=== PATIENT | male | born 1945 | race Caucasian/White ===

== ENCOUNTER 2019-03-04 09:00 | Day surgery (SDC) | payer MEDICARE, SELFPAY | END 2019-03-04 11:50 | disposition home or self-care (01) | PROVIDERS: PCP Internal Medicine; Visit Provider Surgery | DX: Z12.11 Encounter for screening for malignant neoplasm of colon (principal); Z86.010 Personal history of colon polyps; D12.2 Benign neoplasm of ascending colon | CPT/HCPCS: 45380; 45381; 812; 88305; J0690; J2704; J7120 ==

== ENCOUNTER 2019-03-26 08:14 | Outpatient (CLI) | payer MEDICARE, SELFPAY ==
--- NOTE | 2019-03-26 09:16 | ECG_ITS ---
Measurements Intervals Reeves Rate: 67 P: 5 HI: 165 QRS: -14 QRSD: 113 T: 67 QT: 373 QTc: 396 Interpretive Statements SINUS RHYTHM INTRAVENTRICULAR CONDUCTION DELAY DELAYED PRECORDIAL R/S TRANSITION INFERIOR INFARCT, AGE INDETERMINATE BASELINE ARTIFACT- I, II, III, AVR, AVL, AVF ABNORMAL ECG Electronically Signed On 03-26-2019 9:26:49 ERGONOMIST by Harry Tang D.O.
== END 2019-03-26 08:15 | disposition home or self-care (01) ==
LOC: ANHSURGERY 08:19
PROVIDERS: PCP Internal Medicine; Visit Provider Surgery
DX: I10 Essential (primary) hypertension (principal); I45.9 Conduction disorder, unspecified; R94.31 Abnormal electrocardiogram [ECG] [EKG]
CPT/HCPCS: 93005

== ENCOUNTER 2019-03-29 11:41 | Outpatient (CLI) | payer MEDICARE, SELFPAY ==
--- NOTE | ~2019-03-29 | XR_ITS ---
EXAMINATION: XR chest 2V EXAM DATE: 03/29/2019 12:01 INDICATION: Hypertension. TECHNIQUE: Frontal and lateral projections of the chest obtained and reviewed. There is no prior nany dy for comparison. FINDINGS: There is a right-sided portacatheter. There is linear right basilar scarring/atelectasis. The lungs are otherwise clear. There are no pleural effusions. The cardiomediastinal silhouette is within normal limits. There is no pneumothorax suspected. Patient has diffuse idiopathic skeletal h yperostosis (DISH). IMPRESSION: No acute cardiopulmonary findings. Reviewed, dictated and finalized at location B. MERCHANT
== END 2019-03-29 11:42 | disposition home or self-care (01) ==
LOC: CHSIMG 11:44
PROVIDERS: PCP Internal Medicine; Visit Provider Internal Medicine
DX: I10 Essential (primary) hypertension (principal); R94.31 Abnormal electrocardiogram [ECG] [EKG]
CPT/HCPCS: 71046

== ENCOUNTER 2019-04-01 14:16 | Outpatient (CLI) | payer MEDICARE, SELFPAY ==
--- NOTE | 2019-04-01 14:32 | ECHO_ITS ---
Patient Info Name: Mookie Phelps Age: 74 years : 1945 Gender: Male Ht: 70 in Wt: 256 lbs BSA: 2.44 m2 HR: 78 bpm BP: 159 / 92 mmHg Technical Quality: Good Exam Date: 04/01/2019 2:47 PM Exam Location: [facility] Pulmonary Patient Status: Outpatient Admit Date: 04/01/2019 Staff Ordering Physician: Harry Tang DO Spool Hauler: Perla Powell RDCS Attending Provider: Harry Tang DO Referring Physician: Clyde GUZMAN; Exam Type: CA echo doppler color flow Study Info Indications R06.09 - Other forms of dyspnea Complete two-dimensional, color flow and Doppler transthoracic echocardiogram is performed. Summary 1. Left ventricular chamber dimension is normal. 2. Left ventricular systolic function is normal, estimated at 55-60%. 3. There is moderately increased left ventricular wall thickness. 4. Left ventricular septal wall motion is abnormal with septal motion related to bundle branch block. 5. The left ventricular diastolic function is grade I diastolic dysfunction. 6. E/e' 10 is mildly elevated. 7. Left atrial chamber dimension is mildly enlarged. 8. There is moderate aortic valve sclerosis. 9. There is trace aortic valve regurgitation. 10. There is mild mitral valve regurgitation. 11. No pulmonary hypertension, estimated pulmonary arterial systolic pressure is 32 mmHg. 12. There is trace pulmonic regurgitation. Left Ventricle E/e' 10 is mildly elevated. Left ventricular chamber dimension is normal. Left ventricular systolic function is normal, estimated at 55-60%. There is moderately increased left ventricular wall thickness. Left ventricular septal wall motion is abnormal with septal motion related to bundle branch block. The left ventricular diastolic function is grade I diastolic dysfunction. Right Ventricle Right ventricular chamber dimension is normal. Right ventricular systolic function is normal. Left Atria Left atrial chamber dimension is mildly enlarged. Right Atria Right atrial chamber dimension is normal. Aortic Valve The aortic valve is trileaflet. There is moderate aortic valve sclerosis. There is no aortic valve stenosis. There is trace aortic valve regurgitation. Pulmonic Valve There is trace pulmonic regurgitation. Mitral Valve There is no mitral valve stenosis. There is mild mitral valve regurgitation. Tricuspid Valve There is no tricuspid valve regurgitation. No pulmonary hypertension, estimated pulmonary arterial systolic pressure is 32 mmHg. Pericardium/Pleural There is no pericardial effusion. Inferior Vena Cava Normal inferior vena cava with >50% collapse upon inspiration consistent with normal right atrial pressure, 5 mmHg. Aorta The aortic root size at the sinus of Valsalva is normal. Left Ventricular Outflow Tract Name Value Normal LVOT 2D LVOT Diameter 2.2 cm LVOT Doppler LVOT Peak Gradient 4 mmHg LVOT Mean Gradient 2 mmHg LVOT VTI 23 cm LVOT VTI/AV VTI Ratio 0.9 LVOT Stroke Volume
== END 2019-04-01 14:17 | disposition home or self-care (01) ==
LOC: ANHCARD 14:17
PROVIDERS: PCP Internal Medicine; Visit Provider Internal Medicine Cardiovascular Disease
DX: R06.09 Other forms of dyspnea (principal)
CPT/HCPCS: 93306

== ENCOUNTER 2019-04-06 15:07 | Inpatient (IN) | payer MEDICARE, SELFPAY ==
[2019-03-26 08:38] VITALS: BMI 37.1
[2019-03-26 09:20] VITALS: BP 145/81; PULSE 69; RESP 18; TEMP 36.8; O2SAT 96
[2019-04-06] VITALS (11 sets, daily range): BP systolic 114–160; BP diastolic 71–90; PULSE 70–85; RESP 12–19; TEMP 36.3–37.4; O2SAT 92–96
--- NOTE | 2019-04-06 10:29 | WPDANESEPPF ---
Anes - Initial Pre Proc Eval Procedure: Operation Date: 04/06/19 11:00 Proposed Procedures p Hand Assisted Laparoscopic Right Hemicolectomy, Possible Open - Joaquín Johns DO Date/Time: 04/06/19 10:29 Surgeon: Joaquín Johns DO Pre Op Diagnosis: Tubular Adenoma Patient Data Age: 74 Gender: M Height: 5 ft 10 in Weight: 117.5 kg Last Vital Signs Temp 36.8 C 03/26/19 09:20 Pulse 69 03/26/19 09:20 Resp 18 03/26/19 09:20 BP 145/81 H 03/26/19 09:20 Pulse Ox 96 03/26/19 09:20 Allergies Allergy/AdvReac Type Severity Reaction Status Date / Time No Known Allergies Allergy Unverified 03/26/19 08:27 Home Medications Medication Instructions Recorded Confirmed Type alpha lipoic acid 100 mg PO DAILY 03/26/19 03/26/19 History amlodipine 5 mg PO DAILY 03/26/19 03/26/19 History atorvastatin 20 mg PO DAILY 03/26/19 03/26/19 History cyanocobalamin (vitamin B-12) 1,000 mcg PO DAILY 03/26/19 03/26/19 History losartan 100 mg PO DAILY 03/26/19 03/26/19 History pyridoxine (vitamin B6) [Vitamin 100 mg PO DAILY 03/26/19 03/26/19 History B-6] vit C-E-zinc nz-orgg-mik-zeax 1 cap PO DAILY 03/26/19 03/26/19 History [ICaps AREDS2] trazodone 50 mg tablet 50 mg PO QPM #90 tablet 03/28/19 Rx Patient hx anesthesia problems: none Family hx anesthesia problems: none PMFSH Past Medical History Medical History Arthritis Bleeding tendency Surgical History Surgical History H/O colonoscopy History of appendectomy History of hip replacement Hx of cataract surgery Family History Family History Other Family history of coronary artery disease Hypertension Social History Social History Smoking status: Never smoker Alcohol intake: current Anes - Eval Final PreProcedure Day of Procedure 04/06/19 10:29 Patient weight: obese Heart: regular rate and rhythm Lungs: clear to auscultation Airway: Mallampati scale class II Neurological: alert and oriented Last oral intake: >/= 8 hours ASA classification: III Emergent: no Anesthetic plan: proceed Anesthesia type and monitoring: general ETT and standard monitoring Informed Consent: The patient's anesthetic plan and its attendant risks and benefits were discussed with the patient/family/POA. Questions were solicited and answers provided to the satisfaction of the patient/family/POA.
[2019-04-06] MEDS: LACTATED RINGERS 1,000 ML 30 ML IV CONT ×2 (10:30→13:46)
--- NOTE | 2019-04-06 10:37 | WPDHPUPDATE1 ---
History and Physical Update Update Date/Time: 04/06/19 10:37 History and Physical has been reviewed, including an updated exam of the patient. There are NO changes in the patient's condition. Risks, benefits, and alternatives have been discussed and questions answered. Patient agrees to proceed with procedure.
[2019-04-06] MEDS: IBUPROFEN IV 800 MG/200 ML 800 MG/200 ML BAG 400 MG IVPB (11:13)
[2019-04-06] MEDS: ceFAZolin 2 GM/D5W 50 ML 2 GM/50 ML BAG IVPB (11:13)
--- NOTE | 2019-04-06 13:52 | PM.PROC ---
Procedure Note - Detailed Date of procedure: 04/06/19 Pre-op diagnosis: Ascending colon adenoma Post-op diagnosis: same Procedure performed: Hand assisted laparoscopic right hemicolectomy with ileocolic anastomosis Description of procedure: Procedure as well as risks benefits and alternatives were explained to the patient. Written consent was obtained and placed in chart prior to procedure. Patient was brought back to surgical suite. [] was placed supine on operating table. Time-out was done to confirm patient procedure. [] was then intubated by the anesthesia department. [] abdomen was prepped and draped in sterile fashion using chlorhexidine prep. A 7 centimeter vertical incision was made just superior to the umbilicus using a 15 blade scalpel. Electrocautery was used for hemostasis and for dissection down through Mar's fascia. The linea alba was identified, and incised using electrocautery. Two Mimi clamps were used to lift the fascia anteriorly, and the peritoneum was then entered using electrocautery. The abdomen was inspected and no acute abnormalities were noted. The wound protector was placed at this incision, and the GelPort was applied with a 5 millimeter port placed through it. Carbon dioxide insufflation was used to create a pneumoperitoneum. The camera was inserted and the abdominal cavity was inspected. The tattooed region was identified on the [] colon, and no other abnormalities were noted. The patient was placed in Trendelenburg position and rotated slightly to the left. A 5 millimeter incision was made in the lower midline and a 5 millimeter trocar was inserted under direct visualization. Another 5 millimeter incision was made in the left lower quadrant, and a 5 millimeter trocar was inserted under direct visualization. A transversus abdominis plane block with Exparel was performed under laparoscopic visualization bilaterally. After carefully inspecting the abdominal cavity, I began my dissection from a medial to lateral direction along the ileocolic pedicle. The cecum was tented anteriorly and laterally and this allowed me to visualize the ileocolic pedicle. The medial side and inferior side of the peritoneum was scored using hook electrocautery and the retroperitoneal plane was entered. Careful dissection was performed using hook electrocautery in this relatively avascular plane. The duodenum was identified and swept posteriorly. I then continued to dissect proximally along the ileocolic pedicle. I isolated the ileocolic vein and artery individually and performed a high ligation using bipolar cautery. Hemostasis appeared adequate. I then continued the medial to lateral dissection maintaining this avascular plane. I also dissected along the transverse colon to the right side all the way to the level of the hepatic flexure. The terminal ileum and appendix were then retracted medially and the lateral peritoneal attachments were taken down using hook electrocautery. The root of the mesentery was then carefully taken down proximally to allow adequate mobilization of the small bowel for our anastomosis. The lateral peritoneal attachments of the ascending colon were then taken down using hook electrocautery. The hepatic flexure was taken down using ligasure bipolar cautery. Once this was completed I gained adequate mobilization of the entire ascending and proximal transverse colon to exteriorize and perform our resection and anastomosis. The patient was flattened out in bed, and the cecum was grasped and delivered through the wound protector. The pneumoperitoneum was released. I carefully delivered the entire ascending and proximal transverse colon out through the hand port incision. The specimen was inspected and appeared to have adequate mobilization beyond the tattoo to perform our resection. The transverse colon was cleared of the epiploic appendages and omentum and a BO 75 millimeter blue load stapler was advanced across the
--- NOTE | 2019-04-06 14:22 | SUR.PHASEI ---
1422 family updated on pt's status
--- NOTE | 2019-04-06 14:33 | SUR.PHASEI ---
1433 - family sent to floor
--- NOTE | 2019-04-06 16:08 | ADMGEN ---
This patient, Mookie Phelps, was admitted to 3 [facility] Surg Room 301-01. Patient/family oriented to hospital policies and general routines including ID bracelet, bed and alarms, visiting hours, pain management, procedures, bathroom and other care routines, personal items, smoking policy, room service/diet, and visiting hours. Valuables list has been completed. Information on how to activate the Rapid Response Team has been discussed. Patient/Family are encouraged to report perceived risks to care and to ask questions if they do not understand what they are told or what they should do.
[2019-04-06] MEDS: LACTATED RINGERS 1,000 ML 100 ML IV CONT (17:41)
[2019-04-06] MEDS: TRAZODONE HCL 50 MG TABLET PO (21:05)
[2019-04-07] VITALS (7 sets, daily range): BP systolic 130–180; BP diastolic 67–100; PULSE 74–100; RESP 16–18; TEMP 36.4–37.4; O2SAT 92–97
[2019-04-07] MEDS: IBUPROFEN IV 800 MG/200 ML 800 MG/200 ML BAG 400 MG IVPB (04:30)
[2019-04-07] MEDS: hydrALAZINE HCL 20 MG/ML VIAL IV PUSH (05:38)
[2019-04-07] MEDS: LACTATED RINGERS 1,000 ML 100 ML IV CONT ×2 (05:43→16:27)
[2019-04-07 06:24] LABS: Hematocrit 35.1 % (42.0-52.0); Hemoglobin 11.8 g/dL (14.0-18.0); Immature Granulocyte Absolute 0.02 K/mm3 (0.00-0.031); Immature Granulocyte Percent A 0.3 % (0-0.5); Lymphocytes Absolute Auto 0.27 K/mm3 (0.9-3.2); Lymphocytes Percent Auto 3.5 % (18.3-44.2); Mean Corpuscular HGB Conc 33.6 g/dl (32-36); Mean Corpuscular Hemoglobin 32.2 pg (26-34); Mean Corpuscular Volume 95.6 fl (80-100); Mean Platelet Volume 9.1 fl (7.4-10.4); Monocytes Absolute Auto 0.6 K/mm3 (0.1-0.6); Monocytes Percent Auto 7.6 % (2.6-8.5); Neutrophils Absolute Auto 6.9 K/mm3 (1.3-6.7); Neutrophils Percent Auto 88.6 % (45.5-73.1); Platelet Count Result 101 k/mm3 (150-375); Red Blood Count 3.67 M/mm3 (4.6-6.20); Red Cell Distribution Width 13.7 % (11.5-14.5); White Blood Count 7.8 K/mm3 (4.5-10.0)
[2019-04-07 06:27] LABS: Blood Urea Nitrogen 17 mg/dL (9-20); Calcium 8.6 mg/dL (8.4-10.2); Carbon Dioxide 26 mmol/L (22-30); Chloride 105 mmol/L (98-107); Estimated CRCL calculation 48 ml/min; Estimated Glomerular Filt Rate 46; Glucose 164 mg/dL (75-110); Potassium 3.8 mmol/L (3.4-5.0); Sodium 141 mmol/L (137-145)
[2019-04-07] MEDS: LOSARTAN POTASSIUM 100 MG TABLET PO (08:39)
[2019-04-07] MEDS: ENOXAPARIN 40 MG/0.4 ML SYRINGE SUB-Q (08:40)
[2019-04-07] MEDS: ATORVASTATIN 20 MG TABLET PO (08:40)
[2019-04-07] MEDS: AMLODIPINE BESYLATE 5 MG TABLET PO (08:51)
--- NOTE | 2019-04-07 10:18 | PM.PNGS ---
Progress Note: A&P Assessment and Plan (1) Tubular adenoma of colon: Code(s): D12.6 - Benign neoplasm of colon, unspecified Status: Acute Assessment and Plan: POD#1 and doing well. Pain well controlled. Advanced to a full liquid diet Pathology pending. Encouraged increased activity and walking in the halls today. Encouraged IS use. (2) Postoperative urinary retention: Code(s): N99.89 - Other postprocedural complications and disorders of genitourinary system; R33.8 - Other retention of urine Status: Acute Assessment and Plan: Urinary retention this morning treated with straight cath. If this continues to be a problem, we may need to place a Wilhelm catheter for a day or two. Will continue to monitor. (3) Aplastic anemia: Code(s): D61.9 - Aplastic anemia, unspecified Status: Acute (4) Hypertension: Code(s): I10 - Essential (primary) hypertension Status: Acute Assessment and Plan: Restarted his home medications. High BP this morning likely due to urinary retention and discomfort. Continue to monitor. (5) CKD (chronic kidney disease) stage 3, GFR 30-59 ml/min: Code(s): N18.3 - Chronic kidney disease, stage 3 (moderate) Status: Acute Assessment and Plan: Creatinine this morning 1.5. Continue IV fluids until tolerating an appropriate oral fluid intake. (6) BRIGID on CPAP: Code(s): G47.33 - Obstructive sleep apnea (adult) (pediatric); Z99.89 - Dependence on other enabling machines and devices Status: Acute Assessment and Plan: CPAP ordered and worn at night. Currently on 1L NC, try to wean him off today. (7) Obesity: Code(s): E66.9 - Obesity, unspecified Status: Acute (8) Dyslipidemia: Code(s): E78.5 - Hyperlipidemia, unspecified Status: Acute Additional Plan Discussed the patient's case and plan of care with Dr. Johns today. Subjective Subjective Date/Time Seen: 04/07/19 09:10 Post Op day: 1 (S/p REED right hemicolectomy on 04/06/[address] Johns) Patient reports: tolerating liquids well Interval history: Patient seen and examined. Reports having urinary retention overnight with inability to void. BP this morning 180/100 prior to morning medications and prior to the bladder scan. The nurse bladder scanned him this morning and it showed 950 cc. He attempted to void again and was only able to void 50 cc. with post-void bladder scan at 900 cc. The nurse reports then doing a straight cath and getting 1200 cc of urine out. BP was checked after and was 150/70's. Patient denies a history of urinary retention or prostate problems. No home medications for urinary flow. Reports pain is tolerable and nearly absent when at rest. He does have some abdominal discomfort with walking around but is tolerating this well. He only had one dose of Ibuprofen overnight. Denies nausea, vomiting, or bloating. Reports small liquid BM last night but none this morning. No other complaints at this time. Review of Systems Review of Systems: All systems reviewed & are unremarkable except as noted in HPI and below Genitourinary: Genitourinary: Reports as per HPI and Denies hematuria Comments: Reports dysuria and retention. Exam Const: General: comfortable, no acute distress, alert and awake Orientation/consciousness: patient oriented x3 Resp: Effort & Inspection: normal respiratory effort and able to speak in complete sentences Auscultation: clear to auscultation bilaterally Cardio: Rate: regular rate Rhythm: regular rhythm Heart sounds: S1 normal heart sound present and S2 normal heart sound present GI: Inspection: non-distended and incision (Abd incisions clean/dry/intact. Minimal ecchymosis at midline incision) GI Palp: Yes Soft to palpation, Yes Tenderness to palpation present (GI) (RLQ and incisional), No Guarding due to palpation present (GI), No Rigid due to palpation and No Rebound tenderness present Auscultati
[2019-04-07] MEDS: LIDOCAINE HCL 2% GEL UROJET 10 ML PKG MUCOUS MEM (16:29)
[2019-04-07] MEDS: TRAZODONE HCL 50 MG TABLET PO (20:57)
[2019-04-08] MEDS: LACTATED RINGERS 1,000 ML 100 ML IV CONT (05:00)
[2019-04-08 06:00] VITALS: BP 165/92; PULSE 86; RESP 18; TEMP 37.4; O2SAT 97
[2019-04-08 10:34] LABS: Blood Urea Nitrogen 15 mg/dL (9-20); Calcium 8.4 mg/dL (8.4-10.2); Carbon Dioxide 24 mmol/L (22-30); Chloride 103 mmol/L (98-107); Estimated CRCL calculation 54 ml/min; Estimated Glomerular Filt Rate 49; Glucose 204 mg/dL (75-110); Potassium 3.9 mmol/L (3.4-5.0); Sodium 140 mmol/L (137-145)
[2019-04-08] MEDS: ENOXAPARIN 40 MG/0.4 ML SYRINGE SUB-Q (10:34)
[2019-04-08] MEDS: AMLODIPINE BESYLATE 5 MG TABLET PO (10:35)
[2019-04-08] MEDS: LOSARTAN POTASSIUM 100 MG TABLET PO (10:35)
[2019-04-08] MEDS: ATORVASTATIN 20 MG TABLET PO (10:35)
--- NOTE | 2019-04-08 11:54 | PM.PNGS ---
Progress Note: A&P Assessment and Plan (1) Tubular adenoma of colon: Code(s): D12.6 - Benign neoplasm of colon, unspecified Status: Acute Assessment and Plan: POD#2 and doing well. Advance to a soft diet Pathology was pending when I saw the patient. Now resulted and showed multiple tubular adenoma with greastest dimension 2.1 cm, terminal ileum mucosa with no significant histopathological changes, omentum with mild vascular congestion, resection margins negative for malignancy, and 11 reactive lymph nodes negative for malignancy. Encouraged increased activity and walking in the halls today. Encouraged IS use. Hopefully he will be able to discharge home in the next 1-2 days if urinary retention resolves. (2) Postoperative urinary retention: Code(s): N99.89 - Other postprocedural complications and disorders of genitourinary system; R33.8 - Other retention of urine Status: Acute Assessment and Plan: Continue the Wilhelm catheter today. Will start Flomax. (3) Aplastic anemia: Code(s): D61.9 - Aplastic anemia, unspecified Status: Acute (4) Hypertension: Code(s): I10 - Essential (primary) hypertension Status: Acute Assessment and Plan: On home medications. (5) CKD (chronic kidney disease) stage 3, GFR 30-59 ml/min: Code(s): N18.3 - Chronic kidney disease, stage 3 (moderate) Status: Acute Assessment and Plan: Creatinine this morning 1.4. IV fluids stopped. (6) BRIGID on CPAP: Code(s): G47.33 - Obstructive sleep apnea (adult) (pediatric); Z99.89 - Dependence on other enabling machines and devices Status: Acute Assessment and Plan: CPAP ordered and worn at night. (7) Obesity: Code(s): E66.9 - Obesity, unspecified Status: Acute (8) Dyslipidemia: Code(s): E78.5 - Hyperlipidemia, unspecified Status: Acute Additional Plan Discussed the patient's case and plan of care with Dr. Johns today. Subjective Subjective Date/Time Seen: 04/08/19 10:20 Post Op day: 2 (REED right hemicolectomy) Patient reports: no new complaints, tolerating liquids well, flatus and no bowel movement Interval history: Patient seen and examined. Denies nausea, vomiting, or bloating. Reports flatus but no BM. Reports some mild discomfort last night but had a Echo which helped alleviate his pain and he slept well comfortably. Denies any abdominal pain or discomfort while sitting in the chair this morning. No other complaints at this time. Wilhelm in place. Review of Systems Review of Systems: All systems reviewed & are unremarkable except as noted in HPI and below Exam Const: General: comfortable, no acute distress, alert and awake Resp: Effort & Inspection: normal respiratory effort Auscultation: clear to auscultation bilaterally Cardio: Rate: regular rate Rhythm: regular rhythm GI: Inspection: non-distended and incision (Abd incisions clean/dry/intact. Minimal ecchymosis at midline incision) GI Palp: Yes Soft to palpation, No Tenderness to palpation present (GI), No Guarding due to palpation present (GI), No Rigid due to palpation and No Rebound tenderness present Auscultation: normal bowel sounds Urinary Catheter: Urinary Catheter: patent and draining and urine clear Neuro: General: moves all extremities and no focal motor deficits Extrem: General: no edema Psych: Mental Status: mental status grossly normal Attitude: cooperative Thought process: Normal thought process present Objective Data Vital Signs Vital Signs: Vital Signs - 24 hr 04/07/19 15:15 04/07/19 21:45 04/08/19 06:00 Temperature 36.4 C 37.4 C 37.4 C Pulse Rate 81 88 86 Respiratory Rate 16 18 18 Blood Pressure 130/67 157/74 H 165/92 H Pulse Oximetry 97 93 97 Intake/Output Intake/Output: Intake & Output 04/05/19 04/06/19 04/07/19 04/08/19 23:59 23:59 23:59 23:59 Intake Total 1420 4870 1620 Output Total 4050 1000 Balance 1
[2019-04-08] MEDS: TAMSULOSIN HCL 0.4 MG CAPSULE PO (13:59)
[2019-04-08 14:00] VITALS: BP 130/67; PULSE 68; RESP 16; TEMP 37; O2SAT 98
[2019-04-08 22:00] VITALS: BP 154/75; PULSE 85; RESP 20; TEMP 36.8; O2SAT 94
[2019-04-08] MEDS: TRAZODONE HCL 50 MG TABLET PO (22:20)
[2019-04-08 23:25] VITALS: PULSE 81; O2SAT 94
[2019-04-09 06:00] VITALS: BP 143/75; PULSE 74; RESP 20; TEMP 36.8; O2SAT 94
[2019-04-09 08:00] VITALS: PULSE 74; RESP 20; O2SAT 94
[2019-04-09] MEDS: ENOXAPARIN 40 MG/0.4 ML SYRINGE SUB-Q (10:10)
[2019-04-09] MEDS: AMLODIPINE BESYLATE 5 MG TABLET PO (10:11)
[2019-04-09] MEDS: ATORVASTATIN 20 MG TABLET PO (10:11)
[2019-04-09] MEDS: TAMSULOSIN HCL 0.4 MG CAPSULE PO (10:11)
[2019-04-09] MEDS: LOSARTAN POTASSIUM 100 MG TABLET PO (10:11)
--- NOTE | 2019-04-09 11:43 | PM.DS ---
DS: Diagnosis Admitting Diagnosis Admitting Diagnosis: Tubular adenoma of colon Discharge Diagnosis (1) Tubular adenoma of colon: Code(s): D12.6 - Benign neoplasm of colon, unspecified Status: Acute (2) Postoperative urinary retention: Code(s): N99.89 - Other postprocedural complications and disorders of genitourinary system; R33.8 - Other retention of urine Status: Acute (3) Aplastic anemia: Code(s): D61.9 - Aplastic anemia, unspecified Status: Acute (4) CKD (chronic kidney disease) stage 3, GFR 30-59 ml/min: Code(s): N18.3 - Chronic kidney disease, stage 3 (moderate) Status: Acute (5) BRIGID on CPAP: Code(s): G47.33 - Obstructive sleep apnea (adult) (pediatric); Z99.89 - Dependence on other enabling machines and devices Status: Acute DS: Summary Hospital Course Reason for hospitalization: Elective colon resection for tubular adenoma of ascending colon Hospital Course: This is a 74-year-old man who underwent a screening colonoscopy for history of colon polyps. He was found to have a large polyp in the proximal ascending colon that was unable to be removed endoscopically. The area was tattooed and surgical resection was recommended. He presented for elective hand assisted laparoscopic right hemicolectomy 04/06. He was then admitted to the surgical floor postoperatively. He did not have a Wilhelm catheter placed at the time of surgery, but had to be straight cathed overnight after the surgery. He was still having urinary retention on postop day 1, and a Wilhelm catheter was then placed. His pain was adequately controlled, and he was remaining hemodynamically stable. He was advanced to a full liquid diet on postop day 1. He was showing signs of bowel function returning, and was then advanced to a soft diet on postop day 2. The Wilhelm catheter was then removed in the morning on postop day 3. He was able to urinate on his own, and was not feeling any urges or hesitancy. He was started on Flomax on postop day 2 to help with any prostate issues. He was then discharged on postop day 3 once tolerating a soft diet and urinating on his own. Status at Discharge Functional status at discharge: independent ambulation Overall status at discharge: patient is progressing back to baseline Time Spent with Patient Time attestation: Total time spent providing and/or coordinating discharge services: Time spent: Less than 30 minutes Exam Const: General: comfortable and no acute distress Limitations: no limitations Neck: Neck: supple and no JVD Resp: Effort & Inspection: normal respiratory effort Auscultation: clear to auscultation bilaterally Cardio: Rate: regular rate Rhythm: regular rhythm GI: Inspection: non-distended GI Palp: Yes Soft to palpation and Yes Tenderness to palpation present (GI) (Incisional) Auscultation: normal bowel sounds Other: Incisions healing well, no wound openings or drainage. Neuro: General: gait normal Motor exam (neuro): 5/5 motor strength present throughout and Normal motor muscle tone present throughout Extrem: General: normal to inspection DS: Data Data Completed and Pending Completed studies during hospitalization: Pending at discharge 04/06/19 12:54 Surgical [PTH] Routine Discharge Plan Discharge Attending physician on discharge: Joaquín Johns Discharging Clinician: Joaquín Johns Patient Disposition: Home, Self-Care Activity: may shower and may drive after 2 weeks Diet: as tolerated Discharge Instructions: No lifting greater than 10 lb for the next 6 weeks. Ambulate for 10-15 minutes at least 3-4 times daily. Call office for increasing pain, fevers, or other problems. Patient Instructions: Antibiotic Form Stand Alone Forms: General Discharge Information Follow-up/Referrals: Joaquín Johns DO [Physician] - 2 Weeks Discharge Medications: New hydrocodone-acetaminophen [[place]] 5-325 mg tablet
[2019-04-09 14:00] VITALS: BP 173/74; PULSE 92; RESP 18; TEMP 36.6; O2SAT 94
--- NOTE | 2019-04-09 21:22 | PC.NURSE ---
[address] WHARTON WITH RESULTS OF VOIDING AND BLADDER SCAN ORDERS RECEIVED INSTRUCTED PT ON [place] CATHETER AND LEG BAG USE DR WILL CALL FRIDAY TO SET APPOINT. WITH UROLOGY.
== END 2019-04-09 19:30 | disposition home or self-care (01) | DRG 330 ==
LOC: ANHSURGERY 15:09 → ANH3MEDSUR 15:10
PROVIDERS: Nurse Practitioner Family; Admitting Provider Surgery; PCP Internal Medicine; Visit Provider Surgery
PROC: 0DTF4ZZ Resection of Right Large Intestine, Percutaneous Endoscopic Approach (ICD-10-PCS; CPT 44204; principal; 2019-04-06 11:00)
DX: D12.6 Benign neoplasm of colon, unspecified (principal); D61.9 Aplastic anemia, unspecified; Z68.41 Body mass index [BMI] 40.0-44.9, adult; Z96.649 Presence of unspecified artificial hip joint; E66.9 Obesity, unspecified; R33.8 Other retention of urine; E78.5 Hyperlipidemia, unspecified; N18.3 Chronic kidney disease, stage 3 (moderate); I12.9 Hypertensive chronic kidney disease with stage 1 through stage 4 chronic kidney disease, or unspecified chronic kidney disease; G47.33 Obstructive sleep apnea (adult) (pediatric); N99.89 Other postprocedural complications and disorders of genitourinary system
CPT/HCPCS: 36415; 80048; 85025; 86850; 86900; 86901; 88309; A9270; C9290; J0131; J0360; J0690; J1100; J1170; J1650; J1741; J2250; J2405; J2704; J2710; J3010; J7030; J7120

== ENCOUNTER 2019-06-21 12:13 | Outpatient (CLI) | payer MEDICARE, SELFPAY ==
--- NOTE | ~2019-06-21 | XR_ITS ---
EXAMINATION: XR foot RT min 3V EXAM DATE: 06/21/2019 12:54 INDICATION: Initial encounter following injury, with pain of the right foot. Twisting injury. TECHNIQUE: Right foot dorsoplantar, lateral and oblique projections obtained and reviewed. There is no prior study for comparison. FINDINGS: Right metatarsal bones unremarkable. There is moderate first metatarsophalangeal primary osteoarthritis. There are no acute fractures or dislocations identified. There is no subcutaneous ga s. The soft tissue is unremarkable. There are no radiopaque foreign bodies. IMPRESSION: 1. XR foot RT min 3V exam without acute osseous findings. 2. Moderate first MTP osteoarthritis. Reviewed, dictated and finalized at location A.
== END 2019-06-21 12:14 | disposition home or self-care (01) ==
LOC: CHSIMG 12:16
PROVIDERS: PCP Internal Medicine; Visit Provider Podiatrist
DX: M79.671 Pain in right foot (principal); M76.821 Posterior tibial tendinitis, right leg
CPT/HCPCS: 73630

== ENCOUNTER 2019-07-08 10:11 | Outpatient (RCR) | payer MEDICARE, SELFPAY ==
--- NOTE | 2019-07-08 10:52 | PTOPEVAL ---
Thank you for referring Mookie Phelps to [facility]. Please review, sign, date and return this plan of care CATHY. I agree with and certify that the following plan of care is medically necessary. Referring Physician Date Admitting Provider: Attending Provider: Lorenza Gonzalez MD Referring Provider: *PT Outpatient Evaluation Start: 07/08/19 10:12 Freq: Status: Active Protocol: Document 07/08/19 10:12 KRISTOPHER (Rec: 07/08/19 10:52 KRISTOPHER [id number]) Therapy Assessment Status Assessment Status Assessment Status Evaluation Outpatient Past Medical History Neurological History Hx Neurological Disorders No Significant History Cardiovascular History Hx Hypercholesterolemia Yes Hx Hypertension Yes Respiratory History Hx Sleep Apnea Yes: USES CPAP Gastrointestinal History Hx Appendectomy Yes Hx Other Gastrointestinal Disorders Yes: TUBULAR ADENOMA Genitourinary History Hx Genitourinary Disorders No Significant History Musculoskeletal History Hx Arthritis Yes: HANDS Hx Joint Replacement Yes: RTHA Hematological History Hx Anemia Yes: HX APLASTIC ANEMIA- NO MEDS NOW Hx Blood Transfusions Yes: STATES 30 PLUS LAST TRANSFUSION 1996 Hx Blood Transfusion Reaction Yes: HIVES- STATES THEN THEY ALWAYS GAVE ME BENADRYL NO PROBLEMS Endocrine History Hx Endocrine Disorders No Significant History HEENT History Hx Cataracts Yes: RT EYE CATARACT REMOVED Hx Macular Degeneration Yes: SURGERY TO LT EYE Hx Tonsillectomy Yes Integumentary History Hx Excision Skin Lesion Yes: BCCA REMOVED LT EAR Hx Shingles Yes Reproductive History Hx Reproductive Disorders No Significant History Psychosocial History Hx Psychiatric Disorders No Significant History Pain History History of Any Previous or Ongoing No Significant History Instance of Pain Anesthesia History Hx Anesthesia Reactions No Significant History Other History Hx Implanted Device Yes: HAS A PORT A CATH SINCE 1996 Evaluation Information Problem Diagnosis dizziness Onset 04/08/19 Subjective Information Pt. reports that he went in Query Text:As Reported By Patient/ for a colon operation and Family began noting dizziness after getting out of bed. He reports that he notes the dizziness most with trying to walk. He reports that he has
== END 2019-07-20 17:00 | disposition home or self-care (01) ==
LOC: CHSPT 10:11
PROVIDERS: PCP Internal Medicine; Visit Provider Internal Medicine
DX: R42 Dizziness and giddiness (principal)
CPT/HCPCS: 97112; 97161

== ENCOUNTER 2019-09-01 09:43 | Outpatient (CLI) | payer MEDICARE, SELFPAY ==
--- NOTE | ~2019-09-01 | CT_ITS ---
EXAMINATION: CT abdomen wo con DATE: 09/01/2019 10:06 INDICATION: Hard knot at prior hernia repair site TECHNIQUE: Computed tomography (CT) of the abdomen was performed without intravenous contrast. Automa moose exposure control and iterative reconstruction technique were employed. Exam dose: 933.95 mGy-cm total exam DLP. COMPARISON: None. FINDINGS: No pulmonary infiltrate or consolidation at the lung bases. Normal heart size. No pericardial or pleural effusion. There are occasional hepatic cysts, the largest measuring up to 3.4 cm. There are scattered hepatic calcified granulomas. No suspicious hepatic space-occupying mass lesion i s evident on this limited noncontrast examination. The gallbladder is present. No bile duct or pancreatic duct dilatation. No pancreatic mass lesion or calcification. Normal splenic size. Normal adrenal glands. 2.7 and 1.3 cm exophytic right renal cysts with mild calcification. Indeterminate 6 mm exophytic lesion of the lateral aspect of the superior pole of the left kidney, to o small to definitively characterize on this limited noncontrast examination. No urinary tract calcul us or hydronephrosis. There is atherosclerotic calcification of the abdominal aorta and iliac arteries; no abdominal aortic aneurysm. No intraperitoneal or retroperitoneal mass lesion or adenopathy. Status post right colectomy. No bowel obstruction, bowel wall thickening, pneumatosis or intraperiton eal free air. Small sliding hiatal hernia. There is a small fat-containing umbilical hernia. Immediately above this is a [place] midline supra umbilical ventral abdominal wall hernia, which contains fat and a part of a single loop of small frannie l without strangulation or obstruction. This hernia has overall vertical dimension of approximately 6 .7 cm height, up to approximately 2.5 cm anteroposterior and 6 cm transverse dimension. Diffuse idiopathic skeletal hyperostosis of the thoracolumbar spine. IMPRESSION: Supraumbilical ventral abdominal wall 6.7 x 2.5 x 6 cm hernia containing part of a singl e loop of small bowel without strangulation or obstruction Small fat-containing umbilical hernia Small sliding hiatal hernia Hepatic cysts Renal cysts Reviewed, dictated and finalized at [facility]. Reviewed, dictated and finalized at [facility]. IMPRESSION: Supraumbilical ventral abdominal wall 6.7 x 2.5 x 6 cm hernia cont aining part of a single loop of small bowel without strangulation or obstructio n Small fat-containing umbilical hernia Small sliding hiatal hernia Hepatic cysts Renal cysts
== END 2019-09-01 09:44 | disposition home or self-care (01) ==
PROVIDERS: PCP Internal Medicine; Visit Provider Surgery
DX: K43.2 Incisional hernia without obstruction or gangrene (principal)
CPT/HCPCS: 74150

== ENCOUNTER 2020-08-28 08:17 | Outpatient (CLI) | payer MEDICARE, SELFPAY ==
--- NOTE | ~2020-08-28 | US_ITS ---
EXAMINATION: US carotid duplex BI DATE: 08/28/2020 08:46 INDICATION: Right carotid bruit TECHNIQUE: Grayscale, color Doppler, and pulsed Doppler images of the cervical carotid arteries were obtained. The degree of vessel stenosis is placed in one of the following categories: normal, <50%, 5 0-69%, >=70% but less than near-occlusion, near-occlusion, or total occlusion. Note that percent sten osis relative to normal distal artery lumen diameter is indirectly measured from velocity measurement s as described by Jose Antonio, et al. Radiology 2003; 229:340-346. COMPARISON: None. FINDINGS: RIGHT: The right common carotid artery (CCA) peak systolic velocity (PSV) is 127 cm/s. The right internal ca rotid artery (ICA) PSV is 79 cm/s. The right ICA end-diastolic velocity (EDV) is 22 cm/s. The right I CA/CCA PSV ratio is 0.6. Grayscale and color Doppler images yield an estimate of <50% diameter reduct ion from plaque in the ICA. The external carotid artery (ECA) PSV is 110 cm/s. There is antegrade yuliana w in the right vertebral artery. LEFT: The left CCA PSV is 104 cm/s. The left ICA PSV is 80 cm/s. The left ICA EDV is 9 cm/s. The left ICA/C CA PSV ratio is 0.8. Grayscale and color Doppler images yield an estimate of <50% diameter reduction from plaque in the ICA. The ECA PSV is 110 cm/s. There is antegrade flow in the left vertebral artery . IMPRESSION: 1. <50% stenosis in the right internal carotid artery. 2. <50% stenosis in the left internal carotid artery. Reviewed, dictated and finalized at [facility].
== END 2020-08-28 08:18 | disposition home or self-care (01) ==
LOC: CHSIMG 08:19
PROVIDERS: PCP Internal Medicine; Visit Provider Internal Medicine
DX: R09.89 Other specified symptoms and signs involving the circulatory and respiratory systems (principal)
CPT/HCPCS: 93880

== ENCOUNTER 2020-09-28 00:47 | Day surgery (SDC) | payer MEDICARE, SELFPAY ==
[2020-09-25 14:12] VITALS: BMI 35.9
[2020-09-28 08:57] VITALS: BP 122/72; PULSE 73; RESP 20; TEMP 35.7; O2SAT 97; BMI 36.6
--- NOTE | 2020-09-28 09:08 | WPDANESEPPF ---
Anes - Initial Pre Proc Eval Procedure: Operation Date: 09/28/20 09:30 Proposed Procedures p Screening Colonoscopy - Joaquín Johns DO Date/Time: 09/28/20 09:08 Surgeon: Joaquín Johns DO Pre Op Diagnosis: neoplasm screening, hx of colon polyps Patient Data Age: 75 Gender: M Height: 1.78 m Weight: 115.9 kg Last Vital Signs Temp 35.7 C L 09/28/20 08:57 Pulse 73 09/28/20 08:57 Resp 20 09/28/20 08:57 BP 122/72 09/28/20 08:57 Pulse Ox 97 09/28/20 08:57 Allergies Allergy/AdvReac Type Severity Reaction Status Date / Time No Known Allergies Allergy Verified 09/28/20 08:31 Home Medications Medication Instructions Recorded Confirmed Type ICaps AREDS2 1 cap PO DAILY 03/26/19 09/28/20 History alpha lipoic acid 600 mg PO DAILY 03/26/19 09/28/20 History amlodipine 5 mg PO DAILY 03/26/19 09/28/20 History cyanocobalamin (vitamin B-12) 1,000 mcg PO DAILY 03/26/19 09/28/20 History pyridoxine (vitamin B6) [Vitamin 100 mg PO DAILY 03/26/19 09/28/20 History B-6] atorvastatin 20 mg tablet See Rx Instructions .ROUTE 10/19/19 09/28/20 Rx .COMPLEX #90 tablet losartan 100 mg tablet See Rx Instructions .ROUTE 08/30/20 09/28/20 Rx .COMPLEX #90 tablet pioglitazone 15 mg PO DAILY 09/25/20 09/28/20 History trazodone 50 mg tablet See Rx Instructions .ROUTE 09/25/20 09/28/20 Rx .COMPLEX #90 tablet Patient hx anesthesia problems: none Family hx anesthesia problems: none PMFSH Past Medical History Medical History Arthritis Bleeding tendency Surgical History Surgical History H/O colonoscopy History of appendectomy History of hemicolectomy REED right ,possible open 04/06/19 History of hip replacement Hx of cataract surgery Family History Family History Other Family history of coronary artery disease Hypertension Social History Social History Smoking status: Never smoker Alcohol intake: current Drinks per week: 2 Alcohol use details: one drink a week Substance use: never Living arrangements: with family Gender identity (if verbalized by the patient): Male Spiritual care concerns: No Agree to blood products: Yes Anes - Eval Final PreProcedure Day of Procedure 09/28/20 09:08 Patient weight: obese Heart: regular rate and rhythm Lungs: clear to auscultation Airway: Mallampati scale class II Neurological: alert and oriented Last oral intake: >/= 8 hours ASA classification: III Emergent: no Anesthetic plan: proceed Anesthesia type and monitoring: general GIVS and standard monitoring Informed Consent: The patient's anesthetic plan and its attendant risks and benefits were discussed with the patient/family/POA. Questions were solicited and answers provided to the satisfaction of the patient/family/POA.
[2020-09-28] MEDS: LACTATED RINGERS 1,000 ML 150 ML IV CONT (09:24)
[2020-09-28 09:25] LABS: Glucose Point of Care 98 mg/dl (65-105)
--- NOTE | 2020-09-28 10:08 | PM.IMHP ---
H&P: HPI History of Present Illness Date/Time: 09/28/20 10:08 Chief Complaint: hx of colon polyp Narrative: 75-year-old man presents for colonoscopy. His last colonoscopy was 1.5 years ago. He had a large polyp that required surgical resection in his ascending colon. He denies any problems since then. His bowels have been moving normally. He denies any hematochezia or melena. Review of Systems Review of Systems: All systems reviewed & are unremarkable except as noted in HPI and below Eyes: Eyes: Denies change in vision ENT: Denies hearing loss, Denies neck pain and Denies sore throat Cardiovascular: Cardiovascular: Denies chest pain and Denies dyspnea Respiratory: Respiratory: Denies cough, Denies dyspnea and Denies wheezing Genitourinary: Genitourinary: Denies hematuria and Denies dysuria Musculoskeletal: Musculoskeletal: Denies arthralgias, Denies joint swelling and Denies neck pain Allergic/Immunologic: Allergic/Immunologic: Denies wheezing [facility] Past Medical History Medical History (Updated 09/28/20 @ 10:09 by Joaquín Johns DO) Arthritis Bleeding tendency Surgical History Surgical History H/O colonoscopy History of appendectomy History of hemicolectomy REED right ,possible open 04/06/19 History of hip replacement Hx of cataract surgery Family History Family History Other Family history of coronary artery disease Hypertension Social History Social History Smoking status: Never smoker Alcohol intake: current Drinks per week: 2 Alcohol use details: one drink a week Substance use: never Living arrangements: with family Gender identity (if verbalized by the patient): Male Spiritual care concerns: No Agree to blood products: Yes Meds Home Medications and Allergies Home Medications Medication Instructions Recorded Confirmed Type ICaps AREDS2 1 cap PO DAILY 03/26/19 09/28/20 History alpha lipoic acid 600 mg PO DAILY 03/26/19 09/28/20 History amlodipine 5 mg PO DAILY 03/26/19 09/28/20 History cyanocobalamin (vitamin B-12) 1,000 mcg PO DAILY 03/26/19 09/28/20 History pyridoxine (vitamin B6) [Vitamin 100 mg PO DAILY 03/26/19 09/28/20 History B-6] atorvastatin 20 mg tablet See Rx Instructions .ROUTE 10/19/19 09/28/20 Rx .COMPLEX #90 tablet losartan 100 mg tablet See Rx Instructions .ROUTE 08/30/20 09/28/20 Rx .COMPLEX #90 tablet pioglitazone 15 mg PO DAILY 09/25/20 09/28/20 History trazodone 50 mg tablet See Rx Instructions .ROUTE 09/25/20 09/28/20 Rx .COMPLEX #90 tablet Allergies Allergy/AdvReac Type Severity Reaction Status Date / Time No Known Allergies Allergy Verified 09/28/20 08:31 Vital Signs Vital Signs - 24 hr 09/28/20 08:57 Temperature 35.7 C L Pulse Rate 73 Respiratory Rate 20 Blood Pressure 122/72 Pulse Oximetry 97 Exam Const: General: alert; No acute distress Orientation/consciousness: patient oriented x3 Limitations: no limitations HENMT: Head: normocephalic and atraumatic Ears: hearing grossly normal bilaterally General nose exam: Normal external nose present and Normal nares present Mouth: Yes Normal oral and palatal mucosa present and Yes moist mucous membranes Eyes: General: appearance normal, both eyes and all related structures Conjunctivae: conjunctivae normal Sclera: sclerae normal Pupils: Equal, round and reactive pupils present EOM: EOMs intact bilaterally Neck: Neck: normal visual inspection, full ROM, no lymphadenopathy, supple and no JVD Lymphatic: no lymphadenopathy noted Chest: Chest palpation & inspection: normal inspection of the chest Resp: Effort & Inspection: normal respiratory effort and able to speak in complete sentences Auscultation: clear to auscultation bilaterally Percussion: percussion normal Cardio: Jugular ve
[2020-09-28 10:44] VITALS: BP 110/62; PULSE 63; RESP 20; O2SAT 98
[2020-09-28 10:54] VITALS: BP 134/79; PULSE 64; RESP 15; O2SAT 98
[2020-09-28 11:04] VITALS: BP 136/78; PULSE 68; RESP 15; O2SAT 98
== END 2020-09-28 11:15 | disposition home or self-care (01) ==
PROVIDERS: PCP Internal Medicine; Visit Provider Surgery
PROC: 0DJD8ZZ Inspection of Lower Intestinal Tract, Via Natural or Artificial Opening Endoscopic (ICD-10-PCS; CPT 45378; principal; 2020-09-28 09:30)
DX: Z12.11 Encounter for screening for malignant neoplasm of colon (principal); D12.3 Benign neoplasm of transverse colon; D12.4 Benign neoplasm of descending colon; E66.9 Obesity, unspecified; Z68.36 Body mass index [BMI] 36.0-36.9, adult; Z90.49 Acquired absence of other specified parts of digestive tract; Z79.84 Long term (current) use of oral hypoglycemic drugs
CPT/HCPCS: 45380; 45385; 82948; 88305; J2704; J7120

== ENCOUNTER 2021-03-15 14:51 | Outpatient (CLI) | payer MEDICARE, SELFPAY ==
[2021-03-15 16:17] LABS: Influenza Control Valid (Valid); SARS-CoV-2 Ag Positive (Negative)
== END 2021-03-15 14:52 | disposition home or self-care (01) ==
LOC: CHSLAB 14:54
PROVIDERS: PCP Internal Medicine; Visit Provider Internal Medicine
DX: U07.1 COVID-19 (principal); J06.9 Acute upper respiratory infection, unspecified
CPT/HCPCS: 87426; 87804; C9803

== ENCOUNTER 2023-10-02 01:15 | Day surgery (SDC) | payer MEDICARE, SELFPAY ==
[2023-09-23 14:46] VITALS: BMI 34.7
--- NOTE | 2023-10-02 09:34 | P.PNAN_ITS ---
Anes - Eval Pre Procedure Procedure: Operation Date: 10/02/23 11:00 Proposed Procedures p Screening Colonoscopy - Joaquín Johns DO Date/Time: 10/02/23 09:34 Surgeon: Nat Pre Op Diagnosis: History of prior colon polyps Patient Data Age: 78 Gender: M Height: 1.78 m Weight: 110 kg Allergies Allergy/AdvReac Type Severity Reaction Status Date / Time No Known Allergies Allergy Verified 09/28/20 08:31 Home Medications Medication Instructions Recorded Confirmed Type alpha lipoic acid 100 mg capsule 600 mg PO DAILY 03/26/19 09/23/23 History amlodipine 5 mg tablet 5 mg PO DAILY 03/26/19 09/23/23 History cyanocobalamin (vitamin B-12) 1,000 mcg PO DAILY 03/26/19 09/23/23 History 1,000 mcg tablet pyridoxine (vitamin B6) 100 mg 100 mg PO DAILY 03/26/19 09/23/23 History tablet (Vitamin B-6) vit C 250 mg-vit E 200 unit-zinc 1 cap PO DAILY 03/26/19 09/23/23 History ox 12.5 [id number]-zeax capsule (ICaps AREDS2) atorvastatin 20 mg tablet See Rx Instructions .Route 10/19/19 09/23/23 Rx .COMPLEX #90 tabs losartan 100 mg tablet See Rx Instructions .Route 08/30/20 09/23/23 Rx .COMPLEX #90 tabs pioglitazone 15 mg tablet 15 mg PO DAILY 09/25/20 09/23/23 History trazodone 50 mg tablet See Rx Instructions .Route 09/25/20 09/23/23 Rx .COMPLEX #90 tabs melatonin 10 mg tablet 10 mg PO HS PRN Sleep 09/23/23 09/23/23 History ECG: SR 67 Patient hx anesthesia problems: none Family hx anesthesia problems: none Results Review: All pre-operative results and documents have been reviewed as part of the pre- operative evaluation. [facility] Past Medical History Medical History Arthritis Bleeding tendency Surgical History Surgical History H/O colonoscopy History of appendectomy History of hemicolectomy REED right ,possible open 04/06/19 History of hip replacement Hx of cataract surgery Family History Family History Other Family history of coronary artery disease Hypertension Social History Social History Smoking status: Never smoker Alcohol intake: current Drinks per week: 1 Alcohol use details: one drink a week Substance use: never Living arrangements: with family Gender identity (if verbalized by the patient): Male Spiritual care concerns: No Agree to blood products: Yes Exam Day of Procedure 10/02/23 09:34
[2023-10-02 10:25] VITALS: BP 162/84; PULSE 73; RESP 16; TEMP 36.1; O2SAT 96; BMI 35.4
[2023-10-02] MEDS: LACTATED RINGERS 1,000 ML 150 ML IV CONT (10:49)
[2023-10-02 10:52] LABS: Glucose Point of Care 97 mg/dl (65-105)
--- NOTE | 2023-10-02 11:47 | PM.IMHP ---
H&P: HPI History of Present Illness Date/Time: 10/02/23 11:47 Chief Complaint: history of colon polyps Narrative: this is an 78-year-old man who presents for colonoscopy. His last colonoscopy was 3 years ago. He has a history of a large polyp that was surgically resected. He denies any hematochezia or melena. He does deal with more frequent constipation over the past 6 months. Review of Systems Review of Systems: All systems reviewed & are unremarkable except as noted in HPI and below Constitutional: Constitutional: Denies chills, Denies fever(s), Denies headache(s) and Denies weight loss Eyes: Eyes: Denies change in vision ENT: Denies dizziness, Denies headache(s), Denies neck mass and Denies throat swelling Cardiovascular: Cardiovascular: Denies chest pain, Denies lightheadedness and Denies dyspnea Respiratory: Respiratory: Denies cough, Denies dyspnea and Denies wheezing Gastrointestinal: Gastrointestinal: Denies abdominal pain, Denies change in bowel habits, Denies nausea and Denies vomiting Genitourinary: Genitourinary: Denies hematuria and Denies dysuria Musculoskeletal: Musculoskeletal: Reports as per HPI Integumentary/Breasts: Skin/Breast: Reports as per HPI Neurologic: Denies dizziness and Denies headache(s) Allergic/Immunologic: Allergic/Immunologic: Denies throat swelling and Denies wheezing PMFSH Past Medical History Medical History Arthritis Bleeding tendency Surgical History Surgical History H/O colonoscopy History of appendectomy History of hemicolectomy REED right ,possible open 04/06/19 History of hip replacement Hx of cataract surgery Family History Family History Other Family history of coronary artery disease Hypertension Social History Social History Smoking status: Never smoker Alcohol intake: current Drinks per week: 1 Alcohol use details: one drink a week Substance use: never Living arrangements: with family Gender identity (if verbalized by the patient): Male Spiritual care concerns: No Agree to blood products: Yes Meds Home Medications and Allergies Home Medications Medication Instructions Recorded Confirmed Type alpha lipoic acid 100 mg capsule 600 mg PO DAILY 03/26/19 10/02/23 History amlodipine 5 mg tablet 5 mg PO DAILY 03/26/19 09/23/23 History cyanocobalamin (vitamin B-12) 1,000 mcg PO DAILY 03/26/19 10/02/23 History 1,000 mcg tablet pyridoxine (vitamin B6) 100 mg 100 mg PO DAILY 03/26/19 10/02/23 History tablet (Vitamin B-6) vit C 250 mg-vit E 200 unit-zinc 1 cap PO DAILY 03/26/19 10/02/23 History ox 12.5 uf-ibsdjd-igumoz-zeax capsule (ICaps AREDS2) atorvastatin 20 mg tablet See Rx Instructions .Route 10/19/19 10/02/23 Rx .COMPLEX #90 tabs losartan 100 mg tablet See Rx Instructions .Route 08/30/20 10/02/23 Rx .COMPLEX #90 tabs pioglitazone 15 mg tablet 15 mg PO DAILY 09/25/20 10/02/23 History trazodone 50 mg tablet See Rx Instructions .Route 09/25/20 10/02/23 Rx .COMPLEX #90 tabs melatonin 10 mg tablet 10 mg PO HS PRN Sleep 09/23/23 10/02/23 History Allergies Allergy/AdvReac Type Severity Reaction Status Date / Time No Known Allergies Allergy Verified 10/02/23 10:24 Vital Signs Vital Signs - 24 hr 10/02/23 10:25 Temperature 36.1 C L Pulse Rate 73 Respiratory Rate 16 Blood Pressure 162/84 H Pulse Oximetry 96 Oxygen Delivery Room Air Exam Const: General: no acute distress and alert Orientation/consciousness: patient oriented x3 HENMT: Head: normocephalic and atraumatic Ears: hearing grossly normal bilaterally Face/Nose/Sinus: Normal nares present Mouth: Yes Normal oral and palatal mucosa present Eyes: Periorbital: periorbital findings hakeem
--- NOTE | 2023-10-02 11:48 | WPDANESEPPF ---
Anes - Initial Pre Proc Eval Procedure: Operation Date: 10/02/23 11:00 Proposed Procedures p Screening Colonoscopy - Joaquín Johns DO Date/Time: 10/02/23 11:48 Surgeon: Joaquín Johns DO Pre Op Diagnosis: History of prior colon polyps Patient Data Age: 78 Gender: M Height: 1.78 m Weight: 112.1 kg Last Vital Signs Temp 97.0 F L 10/02/23 10:25 Pulse 73 10/02/23 10:25 Resp 16 10/02/23 10:25 BP 162/84 H 10/02/23 10:25 Pulse Ox 96 10/02/23 10:25 O2 Del Method Room Air 10/02/23 10:25 Allergies Allergy/AdvReac Type Severity Reaction Status Date / Time No Known Allergies Allergy Verified 10/02/23 10:24 Home Medications Medication Instructions Recorded Confirmed Type alpha lipoic acid 100 mg capsule 600 mg PO DAILY 03/26/19 10/02/23 History amlodipine 5 mg tablet 5 mg PO DAILY 03/26/19 09/23/23 History cyanocobalamin (vitamin B-12) 1,000 mcg PO DAILY 03/26/19 10/02/23 History 1,000 mcg tablet pyridoxine (vitamin B6) 100 mg 100 mg PO DAILY 03/26/19 10/02/23 History tablet (Vitamin B-6) vit C 250 mg-vit E 200 unit-zinc 1 cap PO DAILY 03/26/19 10/02/23 History ox 12.5 bd-vgqhow-wesvkf-zeax capsule (ICaps AREDS2) atorvastatin 20 mg tablet See Rx Instructions .Route 10/19/19 10/02/23 Rx .COMPLEX #90 tabs losartan 100 mg tablet See Rx Instructions .Route 08/30/20 10/02/23 Rx .COMPLEX #90 tabs pioglitazone 15 mg tablet 15 mg PO DAILY 09/25/20 10/02/23 History trazodone 50 mg tablet See Rx Instructions .Route 09/25/20 10/02/23 Rx .COMPLEX #90 tabs melatonin 10 mg tablet 10 mg PO HS PRN Sleep 09/23/23 10/02/23 History Laboratory Tests 10/02/23 10:40 POC Capillary Glucose 97 mg/dl (65-105) Patient hx anesthesia problems: none Family hx anesthesia problems: none Results Review: All pre-operative results and documents have been reviewed as part of the pre-operative evaluation. [facility] Past Medical History Medical History Arthritis Bleeding tendency Surgical History Surgical History H/O colonoscopy History of appendectomy History of hemicolectomy REED right ,possible open 04/06/19 History of hip replacement Hx of cataract surgery Family History Family History Other Family history of coronary artery disease Hypertension Social History Social History Smoking status: Never smoker Alcohol intake: current Drinks per week: 1 Alcohol use details: one drink a week Substance use: never Living arrangements: with family Gender identity (if verbalized by the patient): Male Spiritual care concerns: No Agree to blood products: Yes Anes - Eval Final PreProcedure Day of Procedure 10/02/23 11:48 Patient weight: obese Heart: regular rate and rhythm Lungs: clear to auscultation Airway: Mallampati scale class II Neurological: alert and oriented Last oral intake: >/= 8 hours ASA classification: III Emergent: no Anesthetic plan: proceed Anesthesia type and monitoring: general GIVS and standard monitoring Results Review: All pre-operative results and documents have been reviewed as part of the pre-operative evaluation. HTN, hyperlipidemia, BRIGID on CPAP, DM. Active lemus, no cp or sob. Informed Consent: The patient's anesthetic plan and its attendant risks and benefits were discussed with the patient/family/POA. Questions were solicited and answers provided to the satisfaction of the patient/family/POA.
[2023-10-02 12:36] VITALS: BP 136/64; PULSE 79; RESP 17; O2SAT 96
[2023-10-02 12:45] VITALS: BP 143/85; PULSE 75; RESP 23; O2SAT 96
[2023-10-02 12:55] VITALS: BP 163/88; PULSE 76; RESP 21; O2SAT 97
== END 2023-10-02 13:17 | disposition home or self-care (01) ==
PROVIDERS: PCP Internal Medicine; Visit Provider Surgery
PROC: 0DJD8ZZ Inspection of Lower Intestinal Tract, Via Natural or Artificial Opening Endoscopic (ICD-10-PCS; CPT 45378; principal; 2023-10-02 11:00)
DX: Z12.11 Encounter for screening for malignant neoplasm of colon (principal); D12.3 Benign neoplasm of transverse colon; E66.9 Obesity, unspecified; Z68.35 Body mass index [BMI] 35.0-35.9, adult; Z79.899 Other long term (current) drug therapy; Z98.890 Other specified postprocedural states; Z90.49 Acquired absence of other specified parts of digestive tract; Z82.49 Family history of ischemic heart disease and other diseases of the circulatory system
CPT/HCPCS: 45385; 82948; 88305; J2704; J7120

== ENCOUNTER 2023-11-06 15:31 | Outpatient (CLI) | payer MEDICARE, SELFPAY ==
--- NOTE | ~2023-11-06 | XR_ITS ---
EXAMINATION: XR knee RT min 4V DATE: 11/06/2023 16:01 INDICATION: Right knee pain. TECHNIQUE: 4 views of right knee were obtained. COMPARISON: Right knee radiographs 02/13/2011 FINDINGS: Bone alignment is normal. No fracture. There is mild tricompartmental osteoarthritis. There is a moderate-sized knee joint effusion. IMPRESSION: 1. Mild right knee osteoarthritis. 2. Moderate-sized right knee joint effusion. Reviewed, dictated and finalized at location A.
--- NOTE | ~2023-11-06 | XR_ITS ---
EXAMINATION: XR knee LT min 4V DATE: 11/06/2023 16:00 INDICATION: Left knee pain. TECHNIQUE: 4 views of left knee were obtained. COMPARISON: Left knee radiographs 02/13/2011 FINDINGS: Alignment is normal. No fracture. There is moderate osteoarthritis of medial compartment an d mild osteoarthritis of lateral and patellofemoral compartments. There is a moderate-sized knee join t effusion. IMPRESSION: 1. Moderate left knee osteoarthritis. 2. Moderate-sized left knee joint effusion. Reviewed, dictated and finalized at location A.
== END 2023-11-06 15:32 | disposition home or self-care (01) ==
PROVIDERS: PCP Internal Medicine; Visit Provider Internal Medicine
DX: M25.562 Pain in left knee (principal); M25.561 Pain in right knee; M17.0 Bilateral primary osteoarthritis of knee; M25.462 Effusion, left knee; M25.461 Effusion, right knee
CPT/HCPCS: 73564

== ENCOUNTER 2023-11-20 10:31 | Outpatient (CLI) | payer MEDICARE, SELFPAY ==
--- NOTE | ~2023-11-20 | MR_ITS ---
MRI of the right knee Clinical history: Pain, effusion Technique: Coronal proton density and proton density-weighted images, sagittal proton-density and T2 fat-sat images, and axial proton-density fat-saturated images were acquired. Findings: Anterior and posterior cruciate ligaments are intact. Medial collateral ligament and the la teral collateral ligament complex are intact. Popliteus tendon is intact. There is complex tearing of the posterior horn and body of medial meniscus, with both horizontal and vertical tear components. There is focal complex tear of the body segment of the lateral meniscus. There is moderate chondral thinning along the medial patellar facet. There is mild to moderate diffus e chondral thinning of the femoral trochlea. There is extensive moderate chondral thinning of the med ial femoral condyle. Extensor mechanism is intact. Small joint effusion present. Small Queen cyst present. There is diffus e subcutaneous soft tissue edema. Impression: Complex tear of the posterior horn and body medial meniscus, as detailed above. Focal complex tear of the body segment of the lateral meniscus. Chondromalacia, as detailed above. Small joint effusion with small Queen's cyst. Reviewed, dictated and finalized at location . Impression: Complex tear of the posterior horn and body medial meniscus, as detailed above. Focal complex tear of the body segment of the lateral meniscus. Chondromalacia, as detailed above. Small joint effusion with small Queen's cyst.
== END 2023-11-20 10:32 | disposition home or self-care (01) ==
LOC: CHSIMG 10:33
PROVIDERS: PCP Internal Medicine; Visit Provider Internal Medicine
DX: M25.561 Pain in right knee (principal); S83.231A Complex tear of medial meniscus, current injury, right knee, initial encounter; S83.271A Complex tear of lateral meniscus, current injury, right knee, initial encounter; M94.261 Chondromalacia, right knee; M25.461 Effusion, right knee; M71.21 Synovial cyst of popliteal space [Baker], right knee
CPT/HCPCS: 73721

== ENCOUNTER 2023-12-18 14:33 | Outpatient (CLI) | payer MEDICARE, SELFPAY ==
--- NOTE | ~2023-12-18 | XR_ITS ---
XR_[id number]_CR Ordering provider: Lorenza Gonzalez MD History: . CHRONIC NECK PAIN w intermittent dizziness x yrs LROM . Comparison: None. FINDINGS: VERTEBRAL BODIES: Normal height and alignment. No visible fracture or subluxation. The dens is intact . Prominent osteophytes seen in the lower cervical area. DISK SPACES: Slight narrowing of the disc C3-C4. Multilevel facet joint disease. Multilevel uncoverte bral joint osteoarthritic changes.. PARASPINOUS SOFT TISSUES: No prevertebral soft tissue swelling. Right central line is noted. IMPRESSION: No acute osseous abnormality cervical spine. Multilevel facet joint disease and uncovertebral joint osteoarthritic changes.. Reviewed, dictated and finalized at location A.
== END 2023-12-18 14:34 | disposition home or self-care (01) ==
PROVIDERS: PCP Internal Medicine; Visit Provider Internal Medicine
DX: M50.31 Other cervical disc degeneration, high cervical region (principal)
CPT/HCPCS: 72040

== ENCOUNTER 2023-12-31 00:22 | Emergency (ER) | payer MEDICARE, SELFPAY ==
--- NOTE | ~2023-12-31 | XR_ITS ---
Left Shoulder Technique: AP and scapular Y views were obtained. Clinical History: Pain Findings: No fracture or dislocation is seen. Osseous alignment is anatomic. The glenohumeral joint i s intact. There is mild AC joint degenerative change. Soft tissues are unremarkable. Impression: Mild AC joint degenerative change. Reviewed, dictated and finalized at [facility]. SHAGGER Impression: Mild AC joint degenerative change.
[2023-12-31 00:22] VITALS: BP 156/89; PULSE 82; RESP 18; TEMP 36.2; O2SAT 96
--- NOTE | 2023-12-31 00:35 | PC.NURSE ---
DR FRAZIER AT THE BEDSIDE
--- NOTE | 2023-12-31 00:42 | ED.UPPEXIN ---
HPI - Extremity Injury (Upper) General Chief Complaint: Extremity Injury, Upper Stated Complaint: upper extremity pain Time Seen by Provider: 12/31/23 00:41 Source: patient Mode of arrival: ambulatory Limitations: no limitations History of Present Illness HPI narrative: patient is 78-year-old male with significant past medical history that presents today for left shoulder pain. Patient was lifting a heavy box and hurt his left shoulder. He states that it got worse throughout the day and then he lost a lot of range of motion most the pain is in the back of the left shoulder around the trapezius muscle and infraspinatus tendon. He denies any other symptoms. complaint: injury to: left and shoulder Onset (ago): hour(s) Other Extremity Injury: Left: shoulder Other injuries: none Handedness: right Place: home Severity: mild Severity scale (1-10): 3 Relieving factors: none Exacerbating factors: none Context: injury Associated symptoms: weakness Related Data Home Medications Medication Instructions Recorded Confirmed alpha lipoic acid 100 mg capsule 600 mg PO DAILY 03/26/19 10/02/23 amlodipine 5 mg tablet 5 mg PO DAILY 03/26/19 09/23/23 cyanocobalamin (vitamin B-12) 1,000 mcg PO DAILY 03/26/19 10/02/23 1,000 mcg tablet pyridoxine (vitamin B6) 100 mg 100 mg PO DAILY 03/26/19 10/02/23 tablet (Vitamin B-6) vit C 250 mg-vit E 200 unit-zinc 1 cap PO DAILY 03/26/19 10/02/23 ox 12.5 hs-miezqc-zetmlk-zeax capsule (ICaps AREDS2) pioglitazone 15 mg tablet 15 mg PO DAILY 09/25/20 10/02/23 melatonin 10 mg tablet 10 mg PO HS PRN Sleep 09/23/23 10/02/23 Allergies Allergy/AdvReac Type Severity Reaction Status Date / Time No Known Allergies Allergy Verified 10/02/23 10:24 Review of Systems Review of Systems: All systems reviewed & are unremarkable except as noted in HPI and below Constitutional: Constitutional: Reports as per HPI Eyes: Eyes: Reports no additional eye complaints ENT: Reports system reviewed and no additional complaints, except as documented Cardiovascular: Cardiovascular: Reports no additional cardiovascular complaints Respiratory: Respiratory: Reports no additional respiratory complaints Gastrointestinal: Gastrointestinal: Reports no additional gastrointestinal complaints Genitourinary: Genitourinary: Reports no additional male genitourinary complaints Musculoskeletal: Musculoskeletal: Reports no additional musculoskeletal complaints Integumentary/Breasts: Skin/Breast: Reports system reviewed and no additional complaints, except as docu Neurologic: Reports system reviewed and no additional complaints, except as documented Psychiatric: Psychiatric: Reports no additional psychiatric complaints Endocrine: Endocrine: Reports no additional endocrine complaints Hematologic/Lymphatic: Hematologic/Lymphatic: Reports no additional hematologic/lymphatic complaints Allergic/Immunologic: Allergic/Immunologic: Reports no additional allergic/immunologic complaints [facility] Past Medical History Medical History (Updated 12/31/23 @ 00:50 by Rylan Elliott MD) Arthritis Bleeding tendency Surgical History Surgical History H/O colonoscopy History of appendectomy History of hemicolectomy REED right ,possible open 04/06/19 History of hip replacement Hx of cataract surgery Family History Family History Other Family history of coronary artery disease Hypertension Social History Social History Smoking status: Never smoker Alcohol intake: current Drinks per week: 1 Alcohol use details: one drink a week Substance use: never Living arrangements: with family Gender identity (if verbalized by the patient): Male Spiritual care concerns: No Agree to blood products: Yes Exam Const: General: healthy appearing, no acute distress and alert HENMT: Head: normal to inspection Ears: external ears normal Face/Nose/Sinus: Normal external nose present Face and sinus: normal facial exam Eyes: Conjunctivae: conjunctivae normal Pupils: Equal, round and reactive pupils present EOM: EOMs intact bilaterally Neck: Neck: normal visual inspection Chest: Chest palpation & inspection: normal inspection of the chest Resp: Effort & Inspection: normal respiratory effort Auscultation: clear to auscultation bilaterally Cardio: Rate: regular rate Rhythm: regular rhythm GI: GI Palp: Yes Soft to palpation Back/Spine/Pelvis: Back: no CVA tenderness Skin: General skin exam: normal color Rashes: no rashes Wounds: no wounds Neuro: General: patient oriented x3 Cranial nerves: Yes Nystagmus not present Speech: normal speech Extrem: Other: Left shoulder pain, positive Ivan test Psych: Mental Status: mental status grossly normal Affect: normal affect Attitude: cooperative Course Reevaluation(s) Reevaluation #1: x-ray showed minor osteoarthritis no acute process no acute dislocation. No Fractures. Date: 12/31/23 Time: 00:57 Vital Signs Vital signs: Vital Signs Temperature 97.2 F L 12/31/23 00:22 Pulse Rate 82 12/31/23 00:22 Respiratory Rate 18 12/31/23 00:22 Blood Pressure 156/89 H 12/31/23 00:22 Pulse Oximetry 96 12/31/23 00:22 Oxygen Delivery Room Air 12/31/23 00:22 Temperature 97.2 F L 12/31/23 00:22 Pulse Rate 82 12/31/23 00:22 Respiratory Rate 18 12/31/23 00:22 Blood Pressure 156/89 H 12/31/23 00:22 Pulse Oximetry 96 12/31/23 00:22 Oxygen Delivery Room Air 12/31/23 00:22 MDM - Extremity Injury (Upper) MDM Narrative Medical decision making narrative: patient was lifting a heavy box and hurt his left shoulder. Most the pain is in the supraspinatus area and around the trap muscle. Will do x-ray of the left shoulder check for any dislocations or a small fractures. Will also give him a muscle relaxant for the pain tense muscles. He cannot have Toradol or ibuprofen because of his kidney function. Most likely this is just a muscle strain and I explained him if he is sick at this time to heal if it is some muscle strain and if his not heal that about 3 weeks to follow his primary care physician and/or to get an MRI for further investigation. Differential Diagnosis Differential diagnosis: Likely other ( Shoulder sprain) Medical Records Attestation: I reviewed the patient's medical records. Lab Data Attestation: I reviewed the patient's lab results. Discharge Plan Discharge Clinical Impression: Other sprain of left shoulder joint, initial encounter, Acute pain of left shoulder Patient Disposition: Home, Self-Care Condition: Stable Instructions: Shoulder Sprain (ED) Prescriptions: New cyclobenzaprine 10 mg tablet 10 mg PO BID PRN (Reason: muscle spasm) Qty: 20 0RF No Action pioglitazone 15 mg tablet 15 mg PO DAILY cyanocobalamin (vitamin B-12) 1,000 mcg Tablet 1,000 mcg PO DAILY amlodipine 5 mg Tablet 5 mg PO DAILY pyridoxine (vitamin B6) [Vitamin B-6] 100 mg Tablet 100 mg PO DAILY alpha lipoic acid 100 mg Capsule 600 mg PO DAILY ICaps AREDS2 250 mg-200 unit -12.5 mg-1 mg Capsule 1 cap PO DAILY melatonin 10 mg Tablet 10 mg PO HS PRN (Reason: Sleep) atorvastatin 20 mg tablet See Rx Instructions .ROUTE .COMPLEX Qty: 90 1RF Dose Instruction: TAKE 1 TABLET BY MOUTH EVERY DAY Rx Instructions: TAKE 1 TABLET BY MOUTH EVERY DAY losartan 100 mg tablet See Rx Instructions .ROUTE .COMPLEX Qty: 90 0RF Dose Instruction: TAKE 1 TABLET BY MOUTH DAILY WITH HYDROCHLORTHIAZIDE Rx Instructions: TAKE 1 TABLET BY MOUTH DAILY WITH HYDROCHLORTHIAZIDE trazodone 50 mg tablet See Rx Instructions .ROUTE .COMPLEX Qty: 90 1RF Dose Instruction: TAKE 1 TABLET BY MOUTH IN THE EVENING Rx Instructions: TAKE 1 TABLET BY MOUTH IN THE EVENING Follow-up/Referrals: Lorenza Gonzalez MD [Primary Care Provider] - Time of Disposition: 00:58
--- NOTE | 2023-12-31 00:47 | PC.NURSE ---
PATIENT BEING TRANSPORTED TO [facility] VIA WHEELCHAIR
[2023-12-31] MEDS: CYCLOBENZAPRINE HCL 10 MG TABLET PO (00:56)
--- NOTE | 2023-12-31 00:59 | PC.NURSE ---
WARM BLANKETS GIVEN.
--- NOTE | 2023-12-31 01:02 | PC.NURSE ---
DR FRAZIER AT THE BEDSIDE
== END 2023-12-31 01:19 | disposition home or self-care (01) ==
LOC: CHSED 01:14
PROVIDERS: Emergency Provider Family Medicine; PCP Internal Medicine
DX: S43.402A Unspecified sprain of left shoulder joint, initial encounter (principal); X50.0XXA Overexertion from strenuous movement or load, initial encounter; Y92.009 Unspecified place in unspecified non-institutional (private) residence as the place of occurrence of the external cause
CPT/HCPCS: 73030; 99283; A9270

== ENCOUNTER 2024-01-12 13:33 | Outpatient (CLI) | payer MEDICARE, SELFPAY ==
--- NOTE | ~2024-01-12 | MR_ITS ---
Procedure: MR shoulder LT wo con Ordering provider: Lorenza Gonzalez MD History: . left shoulder pain, rotator cuff tear . Comparison: Technique: MRI left shoulder without contrast. FINDINGS: ACROMIOCLAVICULAR JOINT: Mild arthropathy. No medial coracoacromial arch stenosis. ROTATOR CUFF: The supraspinatus tendon shows bright signal near to the insertion in the humeral head on T2 weighted images which is suggestive of partial tear versus tendinosis. No subacromial subdeltoi d bursitis. No evidence for subcoracoid impingement or subscapularis tendinosis or tear. PROXIMAL BICEPS TENDON: The proximal biceps tendon and biceps labral complex are normal. The rotator interval is normal as visualized without intraarticular contrast. INFERIOR GLENOHUMERAL LIGAMENT COMPLEX: Normal anterior and posterior bands. Normal axillary pouch. LABRUM: The superior labrum is normal. The anteroinferior labrum is normal. The posterior labrum sanchez ws bright signal which may indicate a tear. Follow-up advised. BONES: Multiple areas of marrow reconversion are noted. Clinical correlation advised. Otherwise, Mar row signal is normal. GLENOHUMERAL JOINT SPACE: The glenohumeral joint space is narrowed with irregularity of the articular cartilage.. No joint effusion. SUPERFICIAL AND DEEP SOFT TISSUES: Otherwise, normal. No paralabral cyst. IMPRESSION: Partial tear versus tendinosis of the supraspinatus tendon.. Highly suggestive tear in the posterior labrum follow-up advised. Marrow reconversion with multiple bright signal area on the fat suppressed images. Clinical correlati on advised. Mild to moderate Osteoarthritic changes of the glenohumeral and acromioclavicular joint with attenuat ion and irregularity of the articular cartilage of the glenohumeral joint. Reviewed, dictated and finalized at location A. [employer] ANALYST IMPRESSION: Partial tear versus tendinosis of the supraspinatus tendon.. Highly suggestive tear in the posterior labrum follow-up advised. Marrow reconversion with multiple bright signal area on the fat suppressed imag es. Clinical correlation advised. Mild to moderate Osteoarthritic changes of the glenohumeral and acromioclavicul ar joint with attenuation and irregularity of the articular cartilage of the gl enohumeral joint.
== END 2024-01-12 13:34 | disposition home or self-care (01) ==
PROVIDERS: PCP Internal Medicine; Visit Provider Internal Medicine
DX: M89.8X1 Other specified disorders of bone, shoulder (principal); M19.012 Primary osteoarthritis, left shoulder; M24.112 Other articular cartilage disorders, left shoulder; M75.102 Unspecified rotator cuff tear or rupture of left shoulder, not specified as traumatic
CPT/HCPCS: 73221

== ENCOUNTER 2024-02-04 11:17 | Outpatient (RCR) | payer MEDICARE, SELFPAY ==
--- NOTE | 2024-02-04 11:58 | PTOPEVAL1 ---
Assessment and note entered by Esau Candelaria Evaluation Information Assessment Status Evaluation ICD-10 Condition Codes (PT) Pain in left shoulder M25.512 Onset 12/23/23 Subjective Information Pt. reports that he was lifting a box of paper and noticed soreness in the left arm. She states that he noticed initially pain was intense and could not lift the left arm. He states that he still cannot lift the left arm overhead. He reports that he cannot use the left hand to wash his hair or wash his back. He states that he has trouble with dressing. He states that getting into and out of a truck is difficult due to pain. He states that he had no problem with the arm prior to the incident. He reports that his goal is to decrease his left shoulder pain and be able to reach overhead. Reported Pain Level Pain Score 0: Self Report Assessment PT Clinical Summary Pt. is an 79 year old male who enters the clinic due to left shoulder pain. He presents with impaired ROM, impaired strength and pain consistent with left rotator cuff pathology. Continued skilled PT is indicated in order to improve ROM and strength to allow for improved performance of IADL's. Plan of Care Interventions Electrical Stimulation,Hot Pack/Cold Pack,Manual Therapy,Neuro Re-education,Patient/Caregiver Education,Therapeutic Activities,Therapeutic Exercise PT Services Indicated Yes Treatment Frequency and 2x/week x 10 visits Duration These treatments will address the objective and functional deficits as defined above. The patient will be advanced safely and appropriately in order for the patient to progress towards his/her prior level of function. Additional exercises will be introduced and as well as a comprehensive home exercise program upon discharge, if needed, ?to ensure carryover of functional gains achieved in the clinic. This treatment plan has been reviewed and agreement upon by the patient.
--- NOTE | 2024-03-12 11:51 | OPREHPOC ---
Outpatient Therapy Plan of Care This is a Multidisciplinary Plan of Care that may contain components documented by all disciplines (PT, OT, and ST.) PT Problem 1 PT Problem #1 Knowledge Deficit PT Goal 1 Goal / Goal Update Pt. will be independent with a HEP addressing ROM at the left shoulder Target Visit 2 Progress Met PT Problem 2 PT Problem #2 Impaired Range of Motion PT Goal 1 Goal / Goal Update Pt. will present with 140 degrees active left shoulder flexion against gravity. met Pt. will be able to reach to the occiput with the left u.e. for ease of grooming. met Target Visit 10 Progress Met PT Problem 3 PT Problem #3 Impaired Strength PT Goal 1 Goal / Goal Update Pt. will demonstrate 3+/5 left shoulder flexion, abduction and ER strength. Target Visit 10 Progress Met
--- NOTE | 2024-03-12 11:51 | PTOPDC ---
Assessment and note entered by JT File, PT Evaluation Information Assessment Status Discharge ICD-10 Condition Codes (PT) Pain in left shoulder M25.512 Onset 12/23/23 Subjective Information patient reports the L shoulder feels Good. he reports he no pain in the L shoulder. he reports he does complete his HEP at home. he reports he is able to sleep on the L shoulder without issues. Reported Pain Level Pain Score 0: Self Report Assessment PT Clinical Summary mr. lee presents to skilled PT for his 10th skilled therapy visit for the L shoulder. he presents today having returned to pain free movement/use of the L UE/shoulder, achievement of strength goal, achievement of rom goal, and ready to DC therapy. he has met all goals for skilled PT . he will continue his HEP independent at home. Plan of Care PT Services Indicated Yes
== END 2024-03-12 13:33 | disposition home or self-care (01) ==
LOC: CHSPT 11:17
PROVIDERS: PCP Internal Medicine; Visit Provider Internal Medicine
DX: M25.512 Pain in left shoulder (principal)
CPT/HCPCS: 97014; 97110; 97161; G0283

== ENCOUNTER 2025-01-24 08:41 | Outpatient (CLI) | payer MEDICARE, SELFPAY ==
--- NOTE | 2025-01-24 08:57 | EST_ITS ---
Patient Info Name: Mookie Phelps Age: 79 years : 1945 Gender: Male Ht: 68 in Wt: 250 lbs BSA: 2.38 m2 HR: 69 bpm BP: 121 / 78 mmHg Heart Rhythm: Sinus Rhythm Technical Quality: Good Exam Date: 01/24/2025 8:57 AM Patient Status: O Admit Date: 01/24/2025 Exam Type: CA stress hari w NM A regadenoson stress test was performed. Staff Referring Physician: Lorenza Gonzalez MD Attending Provider: Lorenza Gonzalez MD Summary 1. 1. Negative lexiscan stress test for ischemic ST changes by ECG criteria. 2. 2. Stable hemodynamics throughout the test. 3. 3. Nuclear scan to follow and will be reported separately. Please correlate with it. History/Risk Factors Hypertension: Yes Dyslipidemia: Yes Obesity: Yes Diabetes Mellitus: Type II Protocol: LEXISCAN Stress ECG Details Stage: REST Duration (min): 1 min : 28 sec HR (bpm): 69 SBP (mmHg): 121 DBP (mmHg): 78 Stage: REST Duration (min): 2 min : 30 sec HR (bpm): 69 SBP (mmHg): 121 DBP (mmHg): 78 Stage: STAGE 1 Duration (min): 0 min : 21 sec HR (bpm): 67 SBP (mmHg): 121 DBP (mmHg): 78 Stage: RECOVERY Duration (min): 0 min : 38 sec HR (bpm): 70 SBP (mmHg): 121 DBP (mmHg): 78 Stage: RECOVERY Duration (min): 1 min : 38 sec HR (bpm): 82 SBP (mmHg): 121 DBP (mmHg): 78 Stage: RECOVERY Duration (min): 2 min : 38 sec HR (bpm): 75 SBP (mmHg): 117 DBP (mmHg): 45 Stage: RECOVERY Duration (min): 3 min : 38 sec HR (bpm): 74 SBP (mmHg): 109 DBP (mmHg): 48 Stage: RECOVERY Duration (min): 4 min : 38 sec HR (bpm): 74 SBP (mmHg): 108 DBP (mmHg): 54 Stage: RECOVERY Duration (min): 5 min : 38 sec HR (bpm): 75 SBP (mmHg): 96 DBP (mmHg): 59 Stage: RECOVERY Duration (min): 6 min : 38 sec HR (bpm): 74 SBP (mmHg): 104 DBP (mmHg): 59 Stage: RECOVERY Duration (min): 7 min : 17 sec HR (bpm): 74 SBP (mmHg): 104 DBP (mmHg): 59 Rest HR: 69 bpm Peak HR: 84 bpm Rest Sys BP: 121 mmHg Peak Sys BP: 117 mmHg Max Pred HR: 139 bpm % Max Pred HR: 60 % Target HR: 118 bpm Max RPP: 9,828 bpm*mmHg BP Response: Normal blood pressure response Termination Reason: Completed Protocol Cardiac Symptoms: None Total Time: 0 min : 21 sec Rest Fernandez BP: 78 mmHg Peak Fernandez BP: 45 mmHg Total Dose: 0.4 mg Resting ECG Sinus rhythm with occasional PVCs. Stress ECG No abnormal ST/T wave changes. Arrhythmias Frequent PVCs. Report Signatures
--- NOTE | 2025-01-24 13:04 | WPDCARIOSTRE ---
Nuclear Stress Test INDICATIONS Indications: Chest pain PROCEDURE Procedure Performed: Myocardial Perf Spect-Multi Procedure: Patient underwent a lexiscan stress test and immediately was injected with 32.6 mCi of cardiolyte. Multiple tomographic images were obtained. These are of good quality. There is a moderate size, moderate severity inferior perfusion defect with stress imaging. A separate resting images were obtained after patient was injected with 10.5 mCi of cardiolyte. Multiple tomographic images were obtained. These are of good quality. There is a moderate size, moderate severity inferior perfusion defect with rest imaging. CONCLUSION Conclusion: 1. Myocardial perfusion imaging demonstrating a fixed moderate size inferior perfusion defect suggestive of diphragmatic attenuation artifact. 2. No evidence of reversible ischemia. 3. Left ventriculogram demonstrates normal measured ejection fraction of 59% with no wall motion abnormalities. 4. TID score 1.0 is not elevated.
== END 2025-01-24 08:42 | disposition home or self-care (01) ==
LOC: CHSIMG 08:47
PROVIDERS: PCP Internal Medicine; Visit Provider Internal Medicine
DX: R07.9 Chest pain, unspecified (principal)
CPT/HCPCS: 78452; 93017; A9502; J2785